=== PATIENT | female | born 1975 ===

== ENCOUNTER 2017-07-24 09:14 | Outpatient (CLI) | payer BC | END 2017-07-24 09:15 | disposition home or self-care (01) | LOC: BICMAMMO 09:14 | PROVIDERS: ATTEND Advanced Practice Midwife | DX: Z12.31 Encounter for screening mammogram for malignant neoplasm of breast (principal); Z80.3 Family history of malignant neoplasm of breast | CPT/HCPCS: 77063; 77067 ==